=== PATIENT | female | born 1935 | race Caucasian/White ===

== ENCOUNTER 2017-07-26 13:42 | Emergency (ER) | payer SELFPAY ==
[~2017-07-26] VITALS: Ht 170.2 cm; Wt 50.0 kg
[2017-07-26 14:18] LABS: HEMATOCRIT 47.4 % (36.0-46.0); MCH 30.7 PG (29.0-34.0); MCHC 33.8 G/DL (30.0-36.0); RBC DIS.WIDTH-CV 13.8 % (11.8-14.6); RBC DIS.WIDTH-SD 45.6 % (39-53); RED BLOOD COUNT 5.21 M/uL (3.80-5.20); WHITE BLOOD COUNT 11.9 K/uL (4.1-10.2)
[2017-07-26 14:28] LABS: CHLORIDE 104 mEq/L (99-109); POTASSIUM 4.4 mEq/L (3.7-5.4); SODIUM 139 mEq/L (136-147)
[2017-07-26 14:29] LABS: GLUCOSE 142 mg/dL (70-99)
[2017-07-26 14:31] LABS: ANION GAP 14 MEQ/L (2-14)
[2017-07-26 14:34] LABS: UREA NITROGEN (BUN) 34 mg/dL (9-23)
[2017-07-26 14:36] LABS: GFR ESTIMATE (CALCULATED) > 59 mL/min/
[2017-07-26 14:40] LABS: TROP-I INTERPRETATION NEGATIVE; TROPONIN-I 0.03 ng/mL (0.0-0.30)
[2017-07-26 15:21] LABS: MEAN PLAT.VOLUME 11.4 uM^3 (9.5-12.4)
[2017-07-26 16:13] LABS: PLATELET CLUMPS PRESENT
[2017-07-26 17:43] LABS: TROP-I INTERPRETATION NEGATIVE; TROPONIN-I 0.03 ng/mL (0.0-0.30)
[2017-07-26] MEDS ORDERED: LASIX20 MG PO (18:27)
[2017-07-26 18:48] VITALS: BP 130/88
== END 2017-07-26 18:51 | disposition home or self-care (01) ==
LOC: EME 13:42
PROVIDERS: Emergency Medicine
DX: I50.9 Heart failure, unspecified (principal); I48.91 Unspecified atrial fibrillation; Z79.01 Long term (current) use of anticoagulants; Z85.810 Personal history of malignant neoplasm of tongue
CPT/HCPCS: 71020; 80048; 83880; 84484; 85027; 93005; 99281; 99285; J1940